=== PATIENT | female | born 1980 | race Caucasian/White ===

== ENCOUNTER 2016-07-22 11:34 | Inpatient (IN) | payer OTHER ==
[~2016-07-22] VITALS: Ht 170.2 cm; Wt 80.7 kg
[~2016-07-22 11:34] MED LIST: FOLI0.4T30 PO; PREN1TAB80 PO
[2016-07-22] MEDS ORDERED: OXYTOCIN 30 UNITS/LACT RINGERS 500 ML IV PRN (13:04)
[2016-07-22] MEDS ORDERED: RINGERS SOLUTION,LACTATED 1,000 ML IV PRN (13:04)
[2016-07-22] MEDS ORDERED: OXYTOCIN 30 UNITS/LACT RINGERS 500 ML IV ONE (13:04)
[2016-07-22] MEDS ORDERED: METHYLERGONOVINE MALEATE 0.2 MG/ML VIAL IM PRN (13:15)
[2016-07-22] MEDS ORDERED: METOCLOPRAMIDE HCL 5 MG/ML 2 ML VIAL IVP PRN (13:15)
[2016-07-22] MEDS ORDERED: DINOPROSTONE 10 MG VAGINAL SUPPOSITORY VG ONE (13:15)
[2016-07-22] MEDS ORDERED: FentaNYL CITRATE-PF 100 MCG/2 ML VIAL IVP PRN (13:15)
[2016-07-22] MEDS ORDERED: CITRIC ACID/SODIUM CITRATE 30 ML SOLUTION UDCUP PO PRN (13:15)
[2016-07-22 13:38] LABS: BASOPHILS % (AUTO) 0.2 % (0.0-2.0); EOSINOPHILS % (AUTO) 0.4 % (1.0-6.0); HEMATOCRIT 37.5 % (36-46); HEMOGLOBIN 11.8 g/dL (12.0-16.0); LYMPHOCYTES # (AUTO) 1.6 K/uL (1.0-4.8); LYMPHOCYTES % (AUTO) 19.6 % (22.0-44.0); MEAN CORPUSCULAR HEMOGLOBIN 26.8 pg (26.0-34.0); MEAN CORPUSCULAR HGB CONC 31.5 G/dL (31.0-37.0); MEAN CORPUSCULAR VOLUME 85 fL (80-100); MONOCYTES # (AUTO) 0.5 K/uL (0.1-1.0); MONOCYTES % (AUTO) 6.2 % (2.0-9.0); NEUTROPHILS # (AUTO) 5.9 K/uL (1.8-7.7); NEUTROPHILS % (AUTO) 73.6 % (40.0-70.0); RED BLOOD CELL COUNT(AUTO) 4.41 MIL/uL (4.00-5.20); RED CELL DISTRIBUTION WIDTH 15.9 % (11.5-14.5)
[2016-07-22] MEDS: RINGERS SOLUTION,LACTATED 1,000 ML IV SCH ×2 (14:14→20:25)
[2016-07-22 14:49] VITALS: BP 119/72
[2016-07-22 19:30] VITALS: BP 116/68
[2016-07-22] MEDS ORDERED: OXYGEN THERAPY IH SCH (20:00)
[2016-07-22] MEDS ORDERED: FentaNYL/BUPIV 0.125%/NS/PF 200 ML ED ONE (22:37)
[2016-07-22] MEDS ORDERED: BUPIVACAINE HCL/PF 0.25% 30 ML VIAL ONE (22:38)
[2016-07-22] MEDS ORDERED: FentaNYL/BUPIV 0.125%/NS/PF 200 ML ED PRN (23:16)
[2016-07-22] MEDS ORDERED: DiphenhydrAMINE HCL 50 MG/ML VIAL IVP PRN (23:30)
[2016-07-22] MEDS ORDERED: ONDANSETRON HCL 4 MG/2 ML VIAL IVP PRN (23:30)
[2016-07-23] MEDS ORDERED: RINGERS SOLUTION,LACTATED 1,000 ML IV ONE (00:07)
[2016-07-23] MEDS ORDERED: MEASLES/MUMPS/RUBELLA VACCINE, LIVE 0.5 ML/VIAL SQ ONE (00:15)
[2016-07-23] MEDS ORDERED: OxyCODONE HCL/ACETAMINOPHEN 5-325 MG TABLET PO PRN ×2 (00:15)
[2016-07-23] MEDS ORDERED: GLYCERIN/WITCH HAZEL LEAF 40 PADS JAR TP PRN (00:15)
[2016-07-23] MEDS ORDERED: LANOLIN 7 GM OINTMENT TP PRN (00:15)
[2016-07-23] MEDS ORDERED: BENZOCAINE 20%/MENTHOL 56 GM SPRAY CANISTER TP PRN (00:15)
[2016-07-23] MEDS ORDERED: -PHARMACY NOTE- MISC ONE ×2 (01:15)
[2016-07-23] MEDS: MAGNESIUM HYDROXIDE SUSPENSION 30 ML UDCUP PO SCH ×2 (09:13→21:38)
[2016-07-23] MEDS: IBUPROFEN 600 MG TABLET PO PRN ×3 (09:33→21:39)
[2016-07-24] MEDS: IBUPROFEN 600 MG TABLET PO PRN (04:00)
[2016-07-24] MEDS: MAGNESIUM HYDROXIDE SUSPENSION 30 ML UDCUP PO SCH (08:03)
[2016-07-24] MEDS ORDERED: IBUP-2070 PO (10:34)
== END 2016-07-24 11:45 | disposition home or self-care (01) | DRG 775 ==
LOC: OBSVTOIN 11:34 → 4S 11:34
PROVIDERS: ADMIT Obstetrics & Gynecology; ATTEND Obstetrics & Gynecology
PROC: 10E0XZZ Delivery of Products of Conception, External Approach (ICD-10-PCS; principal; 2016-07-22)
PROC: 3E0P7GC Introduction of Other Therapeutic Substance into Female Reproductive, Via Natural or Artificial Opening (ICD-10-PCS; 2016-07-22)
PROC: 0HQ9XZZ Repair Perineum Skin, External Approach (ICD-10-PCS; 2016-07-22)
PROC: 3E0S3CZ (ICD-10-PCS; 2016-07-22)
PROC: 00HU33Z Insertion of Infusion Device into Spinal Canal, Percutaneous Approach (ICD-10-PCS; 2016-07-22)
DX: O48.0 Post-term pregnancy (principal); O09.523 Supervision of elderly multigravida, third trimester; Z3A.40 40 weeks gestation of pregnancy; O69.81X0 Labor and delivery complicated by cord around neck, without compression, not applicable or unspecified; O70.0 First degree perineal laceration during delivery; Z37.0 Single live birth
CPT/HCPCS: 86850; 86900; 86901; J2590; J3010; J3490; J7120